=== PATIENT | male | born 1970 | race Asian ===

== ENCOUNTER 2024-06-13 00:32 | Emergency (ER) | payer SELFPAY ==
[~2024-06-13] VITALS: Ht 167.6 cm; Wt 72.7 kg
[2024-06-13 00:33] VITALS: TEMP 98.3
[2024-06-13 02:11] LABS: BASOPHILS % (AUTO) 0.4 % (0.0-2.0); HEMATOCRIT 47.1 % (41-53); HEMOGLOBIN 15.7 g/dL (13.5-17.5); LYMPHOCYTES # (AUTO) 2.4 K/uL (1.0-4.8); LYMPHOCYTES % (AUTO) 23.7 % (22.0-44.0); MEAN CORPUSCULAR HEMOGLOBIN 30.4 pg (26.0-34.0); MEAN CORPUSCULAR HGB CONC 33.3 G/dL (31.0-37.0); MEAN CORPUSCULAR VOLUME 91 fL (80-100); MONOCYTES # (AUTO) 0.6 K/uL (0.1-1.0); MONOCYTES % (AUTO) 6.3 % (2.0-9.0); NEUTROPHILS # (AUTO) 6.6 K/uL (1.8-7.7); NEUTROPHILS % (AUTO) 65.6 % (40.0-70.0); PLATELET COUNT (AUTO) 216 K/uL (150-450); RED BLOOD CELL COUNT(AUTO) 5.16 MIL/uL (4.50-5.90); RED CELL DISTRIBUTION WIDTH 13.7 % (11.5-14.5); WHITE BLOOD COUNT (AUTO) 10.1 K/uL (4.5-11.0)
[2024-06-13 02:18] LABS: ANION GAP 12 mmol/L (8-16); CALCIUM, TOTAL 8.3 mg/dL (8.8-10.5); CARBON DIOXIDE 25 mmol/L (22-29); CHLORIDE 105 mmol/L (98-107); CREATININE 0.99 mg/dL (0.60-1.30); GLOMERULAR FILTR. RATE CALC > 60 mL/min (>60); GLUCOSE,RANDOM 128 mg/dL (70-110); POTASSIUM 3.4 mmol/L (3.5-5.1); SODIUM SERUM 142 mmol/L (136-145); UREA NITROGEN, BLOOD 14 mg/dL (7-18)
[2024-06-13 02:27] LABS: ALCOHOL, BLOOD (SERUM) 251 mg/dL (0-10)
[2024-06-13] MEDS: SODIUM CHLORIDE 0.9% 1,000 ML IV ONE (03:24)
[2024-06-13 06:25] VITALS: BP 185/98; PULSE 82; RESP 16; O2SAT 99
== END 2024-06-13 06:57 | disposition home or self-care (01) ==
LOC: EMS 00:35
DX: S00.03XA Contusion of scalp, initial encounter (principal); M54.6 Pain in thoracic spine; F10.129 Alcohol abuse with intoxication, unspecified; W22.8XXA Striking against or struck by other objects, initial encounter; Y93.89 Activity, other specified; Y92.89 Other specified places as the place of occurrence of the external cause; Y99.8 Other external cause status; Y90.8 Blood alcohol level of 240 mg/100 ml or more
CPT/HCPCS: 99284; 70450; 96360; 80048; 85025; 36415; 72125; G0480; J7030

== ENCOUNTER 2024-06-17 12:58 | Emergency (ER) | payer OTHER ==
[~2024-06-17] VITALS: Ht 167.6 cm; Wt 75.0 kg
[2024-06-17 13:06] VITALS: TEMP 98.4
[2024-06-17] MEDS: CloNIDine HCL 0.2 MG TABLET PO ONE (13:39)
[2024-06-17] MEDS: HYDROCODONE/ACETAMINOPHEN 5-325 MG TABLET PO ONE (15:34)
[2024-06-17 15:59] VITALS: BP 154/85; PULSE 80; RESP 16; O2SAT 99
== END 2024-06-17 16:03 | disposition home or self-care (01) ==
LOC: EMS 12:58
DX: H93.12 Tinnitus, left ear (principal); G89.29 Other chronic pain; M79.602 Pain in left arm; M25.551 Pain in right hip; F17.210 Nicotine dependence, cigarettes, uncomplicated
CPT/HCPCS: 99283

== ENCOUNTER 2024-07-12 10:36 | Emergency (ER) | payer SELFPAY ==
[~2024-07-12] VITALS: Ht 167.6 cm; Wt 68.0 kg
[2024-07-12 11:04] VITALS: TEMP 97.6
[2024-07-12 12:12] VITALS: BP 157/109; PULSE 62; RESP 18; O2SAT 97
== END 2024-07-12 12:55 | disposition home or self-care (01) ==
LOC: EMS 10:38
DX: S06.0XAA Concussion with loss of consciousness status unknown, initial encounter (principal); S00.03XA Contusion of scalp, initial encounter; I10 Essential (primary) hypertension; V00.141A Fall from scooter (nonmotorized), initial encounter; Y93.89 Activity, other specified; Y92.89 Other specified places as the place of occurrence of the external cause; Y99.8 Other external cause status
CPT/HCPCS: 99281; Z7502

== ENCOUNTER 2024-11-10 09:35 | Emergency (ER) | payer MEDICAID ==
[~2024-11-10] VITALS: Ht 167.6 cm; Wt 79.5 kg
[2024-11-10 09:38] VITALS: BP 154/100; PULSE 80; RESP 18; TEMP 97.9; O2SAT 99
[2024-11-10] MEDS ORDERED: IBUP-1492 PO (10:01)
[2024-11-10] MEDS: IBUPROFEN 600 MG TABLET PO ONE (10:03)
== END 2024-11-10 10:08 | disposition home or self-care (01) ==
LOC: EMS 09:37
DX: M77.11 Lateral epicondylitis, right elbow (principal); F17.210 Nicotine dependence, cigarettes, uncomplicated
CPT/HCPCS: 99282; Z7502; Z7610